=== PATIENT | male | born 1955 | race Caucasian/White ===

== ENCOUNTER 2025-01-30 18:34 | Emergency (ER) | payer MEDICARE, BC ==
[~2025-01-30] VITALS: Ht 172.7 cm; Wt 100.2 kg
[~2025-01-30 18:34] MED LIST: ASPI81TA52 PO; ATOR10TA87 PO; COR3.125T PO
[2025-01-30 19:23] LABS: MEAN PLATELET VOLUME 6.9 FL (7.4-10.4); RED CELL DISTRIBUTION WIDTH 13.2 % (11.5-14.5)
[2025-01-30 19:36] LABS: LEUKOCYTE ESTERASE ,URINE LARGE (Neg); NITRITES, URINE POSITIVE (Neg); OCCULT BLOOD,URINE MODERATE (Neg)
[2025-01-30 19:41] LABS: CREATININE 1.11 MG/DL (0.60-1.10); TOTAL CARBON DIOXIDE 28.6 MMOL/L (24-32); eCRCL 60 ML/MIN; eGFR 65 ML/MIN
[2025-01-30 19:43] LABS: UA COLLECTION TYPE CLN CATCH MIDSTREAM
[2025-01-30 19:47] LABS: SQUAMOUS EPITHELIAL CELL,UR FEW /LPF (FEW)
[2025-01-30 19:48] LABS: MUCUS STRANDS FEW /LPF (Neg)
[2025-01-30 19:51] LABS: WBC CLUMPS,URINE FEW /HPF (NEGATIVE)
--- NOTE | 2025-01-30 20:32 | Physician Documentation ---
History of Present Illness ~ Chief Complaint: Urinary Symptoms Stated Complaint: UTI Primary Medical Doctor: ashley HPI This is a 69-year-old male with history of enlarged prostate who presents with two days of dysuria though and difficulty urinating, patient additionally report s subjective fever and chills. Medication Reconciliation Allergies: Coded Allergies: ibuprofen (Verified Allergy, Unknown, 03/22/15) Scheduled Aspirin (Aspirin EC), 1 TAB PO DAILY, (Reported) Atorvastatin Calcium* (Lipitor*), 1 TAB PO HS, (Reported) Carvedilol* (Coreg*), 1 TAB PO BID, (Reported) Past Medical History Past Medical History: Myocardial Infarction Past Surgical History: coronary bypass surgery Alcohol Use: None Lives In: Home Review of Systems ROS As stated above in the HPI, otherwise all systems are reviewed and negative. Physical Exam Vital Signs: Temperature: 99.8, Source: Oral, Heart Rate: 109, Respiratory Rate: 16, BP: 160/97, Pulse Oximetry: 96, Weight: 100.180 Oxygen Flow Rate: 0 Physical Exam VITALS: Reviewed and as above. GENERAL: Alert, nontoxic appearing, no apparent distress. HEENT: RESPIRATORY: No increased work of breathing, no respiratory distress, speaking in full clear sentences CHEST: CV: BACK: GI: MUSCULOSKELETAL: SKIN: NEURO: PSYCH: Progress Results/Orders Results/Orders Vital Signs 01/30/25 18:36 Temp 99.8 Pulse 109 Resp 16 B/P (MAP) 160/97 Pulse Ox 96 O2 Flow Rate 0 Laboratory Tests Test 01/30/25 18:43 01/30/25 19:08 Urine Specimen Description Cln catch midstream Urine Color Yellow Urine Clarity Cloudy Urine pH 8.0 Urine Specific Piercy 1.020 Urine Protein 100 H Urine Glucose (UA) Negative Urine Ketones Negative Urine Occult Blood Moderate H Urine Nitrite Positive H Urine Bilirubin Negative Urine Urobilinogen 0.2 Urine Leukocyte Esterase Large H Urine RBC 50-100 Urine WBC Tntc H Urine WBC Clumps Few Urine Squamous Epithelial Cells Few Urine Transitional Epithelial Cells Few Urine Bacteria 1+ Urine Mucus Few Urine Culture Indicated Indicated Volume Urine Centrifuged 10 ml Urine Comment White Blood Count 11.6 H Red Blood Count 4.82 Hemoglobin 15.0 Hematocrit 43.5 Mean Corpuscular Volume 90.2 Mean Corpuscular Hemoglobin 31.0 Mean Corpuscular Hemoglobin Concent 34.4 Red Cell Distribution Width 13.2 Platelet Count 313 Mean Platelet Volume 6.9 L Neutrophils (%) (Auto) 84.2 H Lymphocytes (%) (Auto) 9.9 L Monocytes (%) (Auto) 5.2 Eosinophils (%) (Auto) 0.5 Basophils (%) (Auto) 0.2 Neutrophils # (Auto) 9.8 H Lymphocytes # (Auto) 1.1 Monocytes # (Auto) 0.6 Eosinophils # (Auto) 0.1 Basophils # (Auto) 0.0 CBC Comment Sodium Level 141 Potassium Level 4.1 Chloride Level 103 Carbon Dioxide Level 28.6 Anion Gap 9 Blood Urea Nitrogen 17 Creatinine 1.11 H Estimated GFR/1.73 m2 65 BUN/Creatinine Ratio 15.3 Glucose Level 165 H Calcium Level 9.4 Total Bilirubin 0.3 Aspartate Amino Transf (AST/SGOT) 12 Alanine Aminotransferase (ALT/SGPT) 19 Alkaline Phosphatase 86 Total Protein 7.7 Albumin 3.9 Globulin 3.8 Albumin/Globulin Ratio 1.0 L Chemistry Comments Medical Decision Making Findings MSE performed in triage and patient returned to ED lobby by nursing staff to await available ED room Departure Referrals: NO PRIMARY CARE PROVIDER (PCP) [facility] Jan 30, 2025 20:32
[2025-01-30 21:48] VITALS: BP 129/81; PULSE 95; RESP 16; TEMP 98.7; O2SAT 97
[2025-01-31] MEDS ORDERED: CEPH-585 PO (11:10)
== END 2025-01-31 01:36 | disposition left against medical advice (07) ==
LOC: ER 18:35
DX: R30.0 Dysuria (principal); I25.2 Old myocardial infarction; Z88.6 Allergy status to analgesic agent; Z95.1 Presence of aortocoronary bypass graft
CPT/HCPCS: 36415; 80053; 81001; 85025; 87088; 99283

== ENCOUNTER 2025-01-31 10:10 | Emergency (ER) | payer MEDICARE, BC ==
[~2025-01-31] VITALS: Ht 172.7 cm; Wt 97.0 kg
[2025-01-31 10:36] VITALS: BP 109/83; PULSE 91; RESP 18; TEMP 98.8; O2SAT 95
--- NOTE | 2025-01-31 11:06 | Physician Documentation ---
History of Present Illness ~ Chief Complaint: Urinary Symptoms Stated Complaint: URINARY COMPLICATIONS Time Seen by MD: 10:53 Primary Medical Doctor: ashley HPI 69-year-old male presents to the ED after being seen yesterday and eloping without completing treatment. States that he has three days of dysuria difficulty urinating and a history of an enlarged prostate. Additionally he reports fever and chills and general malaise Denies any urinary retention Day of Onset: Jan 31, 2025 Medication Reconciliation Allergies: Coded Allergies: ibuprofen (Verified Allergy, Unknown, 01/31/25) rivaroxaban (Verified Allergy, Unknown, black in throat, tongue black, 01/31/25) Scheduled Aspirin (Aspirin EC), 1 TAB PO DAILY, (Reported) Atorvastatin Calcium* (Lipitor*), 1 TAB PO HS, (Reported) Carvedilol* (Coreg*), 1 TAB PO BID, (Reported) Cephalexin*Monohydrate* (Keflex*), 1 CAP PO QID Past Medical History Past Medical History: Myocardial Infarction Past Surgical History: coronary bypass surgery Alcohol Use: None Lives In: Home Review of Systems All Other Systems at this time: Reviewed and Negative ROS As stated above in the HPI, otherwise all systems are reviewed and negative. Physical Exam Vital Signs: Temperature: 98.8, Source: Oral, Heart Rate: 91, Respiratory Rate: 18, BP: 109/83, Pulse Oximetry: 95, Weight: 97.000 Physical Exam General: Alert, no apparent distress. HEENT: PERRL, EOMI, no injection, moist mucous membranes. Neck: Full range of motion. Respiratory: Lungs clear, no respiratory distress. Chest: No accessory muscle use. Cardiovascular: Regular rate and rhythm, no murmurs. Gastrointestinal: Soft, nontender, nondistended. Bowels sounds present. Extremities: Normal range of motion, no deformity. Neurologic: Oriented x4. Psychiatric: Normal mood and affect. Skin: Normal color, warm and dry. No edema, no ecchymosis. Progress Results/Orders Results/Orders Orders - OFELIA RUIZ [employer]PER[employer] Cephalexin Capsule (Keflex Capsule) (01/31/25 11:15) Vital Signs 01/31/25 10:36 Temp 98.8 Pulse 91 Resp 18 B/P (MAP) 109/83 Pulse Ox 95 Medical Decision Making Findings This patient presents as being alert oriented and appropriate to the situation. He is hemodynamically stable vitals reassuring. Did offer hospitalization however he declined. In his start him on Keflex and have not have a close follow up He did not show any signs of urinary retention secondary to prostatitis Departure Disposition: 01 HOME / SELF CARE / HOMELESS Impression: Primary Impression: Acute urinary tract infection Condition: Stable Discharge Instructions: Dysuria, Urinary Tract Infection, Adult Referrals: NO PRIMARY CARE PROVIDER (PCP) Prescriptions Cephalexin*Monohydrate* (Keflex*) 500 Mg Capsule 1 CAP PO QID, #40 CAP Prov: OFELIA RUIZ NP 01/31/25 Signature Scribe Signature: tram Attestation: Scribed for Ofelia Ruiz Hiv Prevention Specialist by Ofelia Ruiz - [place] . 01/31/25 11:13 OFELIA RUIZ NP Jan 31, 2025 11:06
[2025-01-31] MEDS ORDERED: CEPH-585 PO (11:10)
== END 2025-01-31 12:01 | disposition home or self-care (01) ==
LOC: ER 10:10
DX: N39.0 Urinary tract infection, site not specified (principal); R50.9 Fever, unspecified; I25.2 Old myocardial infarction; Z88.6 Allergy status to analgesic agent; Z95.1 Presence of aortocoronary bypass graft
CPT/HCPCS: 99283